=== PATIENT | male | born 1960 | race Caucasian/White ===

== ENCOUNTER 2023-02-09 12:43 | Emergency (ER) | payer BC, OTHER ==
[~2023-02-09] VITALS: Ht 180.3 cm; Wt 99.8 kg
[2023-02-09] MEDS ORDERED: IBUPROFEN 600 MG TABLET ONE (13:29)
[2023-02-09] MEDS ORDERED: IBUPROFEN 600 MG TABLET PO ONE (13:30)
[2023-02-09] MEDS ORDERED: HYDR-3972 PO (16:15)
[2023-02-09] MEDS ORDERED: IBUP-1953 PO (16:15)
[2023-02-09 17:41] VITALS: BP 120/94; TEMP 98; O2SAT 97
== END 2023-02-09 17:47 | disposition home or self-care (01) ==
LOC: ER 12:49
DX: S82.145A Nondisplaced bicondylar fracture of left tibia, initial encounter for closed fracture (principal); V02.90XA Pedestrian on foot injured in collision with two- or three-wheeled motor vehicle, unspecified whether traffic or nontraffic accident, initial encounter; Y93.89 Activity, other specified; Y92.89 Other specified places as the place of occurrence of the external cause; Y99.8 Other external cause status
CPT/HCPCS: 73564-TC; 73610-TC